=== PATIENT | male | born 1950 | race Caucasian/White ===

== ENCOUNTER → 2018-03-08 | Outpatient (CLI) | payer OTHER ==
--- NOTE | 2018-03-08 11:17 | DIAGNOSTIC IMAGING REPORT ---
KUB HISTORY: Screening study in a patient with history of nephrolithiasis HALTH MAINTENANCE COMPARISON: None. FINDINGS: The bowel gas pattern is non-obstructive. Cholecystectomy clips are noted. There is no organomegaly. There are numerous left-sided renal calculi present measuring up to 1.3 cm within the inferior pole. No ureteral calculi or right-sided nephrolithiasis identified. No pneumoperitoneum or pneumatosis. No fracture. Multilevel degenerative changes about the spine. IMPRESSION: 1. Numerous left-sided nephrolithiasis without ureteral calculi identified. 2. Nonobstructive bowel gas pattern. Electronically signed by: Ricky Lomeli M.D. 03/08/2018 11:16 AM Dictated Date/Time: 03/08/2018 11:14 AM
== END | disposition home or self-care (01) ==
LOC: C.RAD 10:28
PROVIDERS: ATTEND Urology
DX: Z00.00 Encounter for general adult medical examination without abnormal findings (principal); N20.0 Calculus of kidney

== ENCOUNTER → 2018-03-12 | Outpatient (CLI) | payer OTHER, BC ==
[~2018-03-12] MED LIST: ASPCH81X PO; CHOL2000 PO; DITROPAN PO; LISI-788 PO; SIMV20TA2 PO
--- NOTE | 2018-03-12 08:17 | DIAGNOSTIC IMAGING REPORT ---
CHEST 2 VIEWS ROUTINE HISTORY: N20.0 Calculus of [id number] COMPARISON: None. FINDINGS: The lungs are clear. Cardiac silhouette is normal in size. No pleural effusions. No pneumothorax. IMPRESSION: No acute process. Electronically signed by: Suhas Serrano M.D. 03/12/2018 8:15 AM Dictated Date/Time: 03/12/2018 8:14 AM
[2018-03-12 09:50] LABS: BASO % 0.4 %; BASO ABS # 0.03 K/uL (0-0.2); EOS % 2.4 %; EOS ABS # 0.18 K/uL (0-0.5); HEMATOCRIT 42.3 % (42-52); HEMOGLOBIN 14.5 g/dL (14.0-18.0); IG# 0.01 K/uL (0.00-0.02); LYMPH % 28.4 %; LYMPH ABS # 2.12 K/uL (1.2-3.4); MEAN CELL VOLUME 86.7 fL (80-100); MEAN CORPUSCULAR HEMOGLOBIN 29.7 pg (25-34); MEAN CORPUSCULAR HGB CONC 34.3 g/dl (32-36); MEAN PLATELET VOLUME 10.3 fL (7.4-10.4); MONO % 7.2 %; MONO ABS # 0.54 K/uL (0.11-0.59); NEUT % 61.5 %; NEUT ABS # 4.58 K/uL (1.4-6.5); PLATELET COUNT 186 K/uL (130-400); RED CELL DISTRIBUTION WIDTH CV 13.6 % (11.5-14.5); RED CELL DISTRIBUTION WIDTH SD 43.2 fL (36.4-46.3); WHITE BLOOD COUNT 7.46 K/uL (4.8-10.8)
[2018-03-12 10:15] LABS: BLOOD UREA NITROGEN 13 mg/dl (7-18); CARBON DIOXIDE 28 mmol/L (21-32); CREATININE 0.89 mg/dl (0.60-1.40); SODIUM 138 mmol/L (136-145)
== END | disposition home or self-care (01) ==
LOC: C.CPL 07:07
PROVIDERS: ATTEND Urology
DX: Z00.00 Encounter for general adult medical examination without abnormal findings (principal); N20.0 Calculus of kidney

== ENCOUNTER → 2018-03-16 | Day surgery (SDC) | payer OTHER ==
[2018-03-12 08:50] VITALS: Ht 172.7 cm; Wt 109.1 kg
[~2018-03-16] VITALS: Ht 172.7 cm; Wt 109.1 kg
[~2018-03-16] MED LIST changes: +ATROPINE SULFATE 0.1 MG/ML 5ML SYR IV PRN; +CIPROFLOXACIN 400MG / D5W IV SCH; +DEXAMETHASONE SOD INJ 4 MG/ML VIAL ONE; +EpHEDrine SULFATE INJ 50 MG/ML AMP IV PRN; +FENTANYL CITRATE INJ 50 MCG/1 ML 2 ML VIAL IV PRN; +FENTANYL CITRATE INJ 50 MCG/1 ML 2 ML VIAL ONE; +HYDROmorphone INJ 0.5 MG/0.5 ML SYR IV PRN; +LABETALOL HCL IV 5 MG/ML 20ML IV PRN; +LACTATED RINGER'S 1000ML 1,000 ML IV SCH; +LIDOCAINE HCL 2% 2 ML VIAL (20MG/ML) ONE; +MIDAZOLAM HCL 1 MG/ML 2ML VIAL ONE; +ONDANSETRON INJ 2 MG/ML 2 ML VIAL IV PRN; +ONDANSETRON INJ 2 MG/ML 2 ML VIAL ONE; +OXYC-57 PO; +OXYCODONE/ACETAMINOPHEN 5-325 TAB ONE; +OXYCODONE/ACETAMINOPHEN 5-325 TAB PO PRN; +PHENYLEPHRINE 100MCG/ML 5ML SYR IV PRN; +PROMETHAZINE HCL INJ 12.5 MG in SODIUM CHLORIDE 0.9% 50ML 50 ML IV PRN; +PROPOFOL IV EMULSION 10 MG/ML 20 ML VIAL ONE
--- NOTE | 2018-03-16 07:19 | History & Physical Bridge Note ---
H&P Re-Evaluation Bridge Note: I have examined the patient, reviewed the History & Physical and in the interval since the performance of the History & Physical I have noted the following changes of clinical significance: No changes noted
--- NOTE | 2018-03-16 07:42 | Discharge Instructions ---
Discharge Instructions Date of Service March 16, 2018. Admission Reason for Admission: Left Kidney Stones Discharge Discharge Diagnosis / Problem: L renal stones s/p ESWL Discharge Goals Goal(s): Decrease discomfort, Improve disease control, Therapeutic intervention Activity Recommendations Activity Limitations: as noted below Lifting Limitations: no more than 25 pounds, gradually increase as tolerated Exercise/Sports Limitations: rest today, gradually increase as tolerated May Resume Sexual Activity: when tolerated Shower/Bathe: no limitations Driving or Machine Use: resume 1 day after discharge . Instructions / Follow-Up Instructions / Follow-Up Follow-up in office as scheduled with KUB Xray beforehand Current Hospital Diet Patient's current hospital diet: Discharge Diet Recommended Diet: Regular Diet (good fluid intake) Procedures Procedures Performed: Left renal extracorporeal shockwave lithotripsy Pending Studies Studies pending at discharge: yes List of pending studies: KUB Xray before follow-up visit Medical Emergencies . Who to Call and When: Medical Emergencies: If at any time you feel your situation is an emergency, please call 911 immediately. . Non-Emergent Contact Non-Emergency issues call your: Urologist Call Non-Emergent contact if: you have a fever, temperature is above 101, your pain is not controlled, your pain is worsening, your pain is unusual for you, your pain is concerning you, you have any medication questions . . "Provider Documentation" section prepared by Ortiz Cook. . [place] Drug Monitoring Program Search Results: patient reviewed within database, see additional documentation (last Rx in May and Jun 2017)
--- NOTE | 2018-03-16 08:36 | [facility] Post Operative Brief Note ---
Immediate Operative Summary Operative Date March 16, 2018. Pre-Operative Diagnosis Calculus of kidney left renal Post-Operative Diagnosis L renal stone. Procedure(s) Performed L ESWL Surgeon Dr. Ortiz Cook School Photographer Surgeon(s) None Estimated Blood Loss NA Findings Consistent with Post-Op Diagnosis Specimens NA Drains None Anesthesia Type General Complication(s) none Disposition Accompanied Pt To Recover: no Disposition: Recovery Room / PACU
--- NOTE | 2018-03-16 08:49 | OPERATIVE REPORT ---
DATE OF OPERATION: 03/16/2018 PREOPERATIVE DIAGNOSIS: Left renal stones. POSTOPERATIVE DIAGNOSIS: Same. PROCEDURE: Extracorporeal shockwave lithotripsy of upper pole stone. SURGEON: Dr. Ortiz Cook. PUBLIC HEALTH TECHNOLOGIST: None. ANESTHESIA: General anesthesia with laryngeal mask. COMPLICATIONS: None. FINDINGS: Left upper pole stone targeted for the entirety of the treatment, fair fragmentation. DETAILS OF PROCEDURE: The patient was brought to the litho suite. He was correctly identified and the stone was visualized on his most recent x-rays. After the correct time out was performed the patient was positioned over the therapy head. An adequate level of anesthesia was administered. The extracorporeal shockwave lithotripsy treatment was then commenced. Please see the [place] Kidney Stone Management sheet for complete treatment summary. After completion of the procedure the patient was taken to the recovery room in stable condition. I attest to the content of the Intraoperative Record and any orders documented therein. Any exception s are noted below.
--- NOTE | 2018-03-16 09:48 | Anesthesia Progress Nt - [facility] ---
Anesthesia Post Op Note Date & Time March 16, 2018 at 09:48 Vital Signs Pain Intensity: 3.0 Vital Signs Past 12 Hours Date Time Temp Pulse Resp B/P (MAP) Pulse Ox O2 Delivery O2 Flow Rate FiO2 03/16/18 09:24 36.8 51 18 126/76 (93) 96 Room Air 03/16/18 09:16 36.7 03/16/18 09:15 52 18 98 03/16/18 09:15 53 18 03/16/18 09:11 137/81 (91) 03/16/18 09:10 50 5 03/16/18 09:10 50 5 100 03/16/18 09:09 Room Air 03/16/18 09:06 128/67 (90) 03/16/18 09:05 49 14 03/16/18 09:05 49 14 100 03/16/18 09:01 127/72 (89) 03/16/18 09:00 51 13 03/16/18 09:00 51 13 100 03/16/18 08:56 119/75 (96) 03/16/18 08:55 53 03/16/18 08:55 53 100 03/16/18 08:51 117/72 (90) 03/16/18 08:50 68 03/16/18 08:50 68 97 03/16/18 08:49 108/80 (89) 03/16/18 08:46 36.4 65 16 108/80 97 Diffusion Mask 6 03/16/18 06:33 37 63 16 126/77 (93) 97 Room Air Notes Mental Status: alert / awake / arousable, participated in evaluation Pt Amnestic to Procedure: Yes Nausea / Vomiting: adequately controlled Pain: adequately controlled Airway Patency, RR, SpO2: stable & adequate BP & HR: stable & adequate Hydration State: stable & adequate Anesthetic Complications: no major complications apparent
[2018-03-16 09:54] VITALS: BP 139/86; PULSE 61; O2SAT 96
== END | disposition home or self-care (01) ==
LOC: X.SURG 06:11
PROVIDERS: ATTEND Urology
DX: N20.0 Calculus of kidney (principal); N40.1 Benign prostatic hyperplasia with lower urinary tract symptoms; N13.8 Other obstructive and reflux uropathy; G47.33 Obstructive sleep apnea (adult) (pediatric); M19.90 Unspecified osteoarthritis, unspecified site; E78.00 Pure hypercholesterolemia, unspecified; I10 Essential (primary) hypertension; Z90.89 Acquired absence of other organs; Z90.49 Acquired absence of other specified parts of digestive tract; Z82.49 Family history of ischemic heart disease and other diseases of the circulatory system; Z84.1 Family history of disorders of kidney and ureter; Z83.3 Family history of diabetes mellitus; Z80.52 Family history of malignant neoplasm of bladder; Z79.82 Long term (current) use of aspirin; Z79.899 Other long term (current) drug therapy; Z88.1 Allergy status to other antibiotic agents

== ENCOUNTER → 2018-05-22 | Outpatient (CLI) | payer OTHER, BC ==
[~2018-05-22] MED LIST changes: -ATROPINE SULFATE 0.1 MG/ML 5ML SYR IV PRN; +CIPR-255 PO; -CIPROFLOXACIN 400MG / D5W IV SCH; -DEXAMETHASONE SOD INJ 4 MG/ML VIAL ONE; -DITROPAN PO; +DTR5 PO; -EpHEDrine SULFATE INJ 50 MG/ML AMP IV PRN; -FENTANYL CITRATE INJ 50 MCG/1 ML 2 ML VIAL IV PRN; -FENTANYL CITRATE INJ 50 MCG/1 ML 2 ML VIAL ONE; -HYDROmorphone INJ 0.5 MG/0.5 ML SYR IV PRN; -LABETALOL HCL IV 5 MG/ML 20ML IV PRN; -LACTATED RINGER'S 1000ML 1,000 ML IV SCH; -LIDOCAINE HCL 2% 2 ML VIAL (20MG/ML) ONE; -LISI-788 PO; +LSN/10125 PO; -MIDAZOLAM HCL 1 MG/ML 2ML VIAL ONE; +MRLP17X PO; -ONDANSETRON INJ 2 MG/ML 2 ML VIAL IV PRN; -ONDANSETRON INJ 2 MG/ML 2 ML VIAL ONE; -OXYCODONE/ACETAMINOPHEN 5-325 TAB ONE; -OXYCODONE/ACETAMINOPHEN 5-325 TAB PO PRN; +PHEN95TA14 PO; -PHENYLEPHRINE 100MCG/ML 5ML SYR IV PRN; -PROMETHAZINE HCL INJ 12.5 MG in SODIUM CHLORIDE 0.9% 50ML 50 ML IV PRN; -PROPOFOL IV EMULSION 10 MG/ML 20 ML VIAL ONE
== END | disposition home or self-care (01) ==
LOC: C.LAB1850 11:32
PROVIDERS: ATTEND Internal Medicine Nephrology
DX: N20.0 Calculus of kidney (principal)

== ENCOUNTER → 2018-05-25 | Outpatient (CLI) | payer OTHER, BC | END | disposition home or self-care (01) | LOC: C.LABSPEC 16:10 | PROVIDERS: ATTEND Urology | DX: N20.0 Calculus of kidney (principal) ==

== ENCOUNTER → 2018-05-25 | Outpatient (CLI) | payer OTHER, BC ==
--- NOTE | 2018-05-25 12:17 | DIAGNOSTIC IMAGING REPORT ---
KUB HISTORY: Left renal calculus with left ureteral stent N20.0 Calculus of kidney COMPARISON: KUB 04/18/2018 FINDINGS: The bowel gas pattern is non-obstructive. Surgical clips of the right upper quadrant abdomen suggest prior cholecystectomy. There is no organomegaly. Multiple left renal calculi redemonstrated measuring up to 6 mm. No definite calculi along the course of the left ureter. No definite right nephrolithiasis. Left ureteral stent in place with focal area of coiling noted about the distal stent at the level of the mid sacrum. No pneumoperitoneum or pneumatosis. No fracture. Degenerative changes of the pelvis, hips and spine. IMPRESSION: 1. Left ureteral stent in place with focal area of coiling noted about the distal left stent at the level of the mid sacrum. 2. Left nephrolithiasis without ureteral calculi identified. Electronically signed by: Ricky Lomeli M.D. 05/25/2018 12:15 PM Dictated Date/Time: 05/25/2018 12:13 PM
== END | disposition home or self-care (01) ==
LOC: C.RAD 11:22
PROVIDERS: ATTEND Urology
DX: N20.0 Calculus of kidney (principal)

== ENCOUNTER → 2018-06-05 | Day surgery (SDC) | payer OTHER, BC ==
[2018-06-04 14:19] VITALS: BMI 36.0
[~2018-06-05] VITALS: Ht 172.7 cm; Wt 109.1 kg
[~2018-06-05] MED LIST changes: +ACET-1256 PO; +ACETAMINOPHEN 325 MG TAB PO PRN; +ATROPINE SULFATE 0.1 MG/ML 5ML SYR IV PRN; +CHECK SCOPOLAMINE PATCH PLACEMENT SCH; +CIPROFLOXACIN / D5W 400 MG IV SCH; +DEXAMETHASONE SOD INJ 4 MG/ML VIAL ONE; +EpHEDrine SULFATE INJ 50 MG/ML AMP IV PRN; +FENTANYL CITRATE INJ 50 MCG/1 ML 2 ML VIAL IV PRN; +FENTANYL CITRATE INJ 50 MCG/1 ML 2 ML VIAL ONE; +HYDROCODONE/ACETAMIN 5/325MG TAB ONE; +HYDROCODONE/ACETAMIN 5/325MG TAB PO PRN; +LABETALOL HCL IV 5 MG/ML 20ML IV PRN; +LABETALOL HCL IV 5 MG/ML 20ML ONE; +LACTATED RINGER'S 1000ML 1,000 ML IV SCH; +LIDOCAINE HCL 2% 2 ML VIAL (20MG/ML) ONE; +NURSING VERBAL MED ORDER ONE; +ONDANSETRON INJ 2 MG/ML 2 ML VIAL IV PRN; +ONDANSETRON INJ 2 MG/ML 2 ML VIAL ONE; +PROMETHAZINE HCL INJ 6.25 MG in SODIUM CHLORIDE 0.9% 50ML 50 ML IV PRN; +PROPOFOL IV EMULSION 10 MG/ML 20 ML VIAL ONE; +SCOPOLAMINE 1.5 MG TDSY TD ONE; +SCOPOLAMINE 1.5 MG TDSY TD SCH; +SODIUM CHLORIDE 0.9% 1000ML 1,000 ML IV SCH
[2018-06-05 13:20] VITALS: BP 112/76; PULSE 57; TEMP 36.7; O2SAT 98; Ht 172.7 cm; Wt 109.1 kg
--- NOTE | 2018-06-05 19:02 | [facility] Operative Report ---
Operative Report Operative Date Jun 05, 2018. Pre-Operative Diagnosis Calculus of kidney Benign prostatic hyperplasia with urinary obstruction Post-Operative Diagnosis Same Procedure(s) Performed Left Cystoscopy, Ureteronephroscopy with Ureteral Dilation, Laser Destruction of the Stone; Left Stent Exchange([id number]), basket manipulation of stone Surgeon Dr. Hele[employer] Tool And Die Manager Surgeon(s) None Estimated Blood Loss 0cc Specimens None Drains None Anesthesia Type General Complication(s) none Disposition yes Recovery Room / PACU Description of Procedure The patient was identified in the preoperative holding area, appropriate informed consents reviewed and completed and the patient was transported to the operating suite. Upon arrival he received appropriate preoperative antibiotics in the form of ciprofloxacin. Adequate general anesthesia was achieved, he was placed in dorsal lithotomy position where he was sterilely prepped and draped in standard fashion. We began the case by passing a 22 [place] cystoscope with 30 lens, inspection revealed no evidence of stricture disease, he is status post TURP in the past, his bladder is healthy appearing. He has a stent protruding from the left ureteral orifice with a small piece of string attached to the distal aspect of the stent. Of note, on fluoroscopic evaluation there is a loop in the stent in the mid ureter, somewhat concerning for a knot. With care, I grasped the distal end of the stent under fluoroscopic guidance gently withdrew the stent. Fortunately this was not a knot was a simple loop. The stent straighten appropriately and I was able to intubate it with a sensor wire which was advanced to the kidney without difficulty. After removing the stent, I placed a 10 [place] double-lumen catheter into the ureter and advanced a second wire into the kidney. I then advanced a flexible ureteroscope over one wire will reserving other full inspection revealed several fragments floating around in the renal pelvis. Of note, he has a complex kidney with numerous compound calyces. In the extreme lower pole, there is an opacity consistent with a large stone seen on his KUB. After treating all of the fragments pieces deemed safe for spontaneous passage, I turned my attention to the lower pole. The stone that was there was extremely challenging to reach secondary to its location. I passed a basket was able to manipulate the stone out of the lower pole and into the upper pole. I subsequently fragmented it entirely with a 270 m laser fiber. I carefully worked my way through the calyces again and all visible calyces were free of large calculi. Performed a careful exit ureteroscopy before placing a 6 [place] by 26 cm double-J stent seeing a good curl in the kidney as well as the bladder. The bladder is decompressed and the case concluded. The patient was taken to the PACU in stable condition. I attest to the content of the Intraoperative Record and any orders documented therein. Any exceptions are noted below.
--- NOTE | 2018-06-05 19:13 | Discharge Instructions ---
Discharge Instructions Date of Service Jun 05, 2018. Admission Reason for Admission: kidney stones Discharge Discharge Diagnosis / Problem: stones Discharge Goals Goal(s): Decrease discomfort, Improve function, Increase independence, Improve disease control, Prevent Disease Progression Activity Recommendations Activity Limitations: resume your previous activity Lifting Limitations: none Exercise/Sports Limitations: none May Resume Sexual Activity: when tolerated Shower/Bathe: no limitations Driving or Machine Use: resume 1 day after discharge . Instructions / Follow-Up Instructions / Follow-Up Please keep your previously scheduled appointment for stent removal. Current Hospital Diet Patient's current hospital diet: Discharge Diet Recommended Diet: Regular Diet Procedures Procedures Performed: Left Cystoscopy, Ureteronephroscopy with Ureteral Dilation, Laser Destruction of the Stone; Left Stent Exchange([id number]), basket manipulation of stone Pending Studies Studies pending at discharge: no Medical Emergencies . Who to Call and When: Medical Emergencies: If at any time you feel your situation is an emergency, please call 911 immediately. . Non-Emergent Contact Non-Emergency issues call your: Urologist Call Non-Emergent contact if: you have a fever, temperature is above 101.5, your pain is not controlled, your pain is worsening . . "Provider Documentation" section prepared by Bill Andre. .
--- NOTE | 2018-06-05 19:28 | DIAGNOSTIC IMAGING REPORT ---
RETROGRADE INCLUDES KUB CLINICAL HISTORY: LTCYSTO LASER STENT stent exchange TECHNIQUE: Image intensifier COMPARISON STUDY: 04/18/2018 FINDINGS: Image intensifier was utilized for a left-sided stent exchange. Fluoroscopy time 22 seconds. 2 images acquired. IMPRESSION: Left ureteral stent replacement. The above report was generated using voice recognition software. It may contain grammatical, syntax or spelling errors. Electronically signed by: Geo Mathis M.D. 06/05/2018 7:26 PM Dictated Date/Time: 06/05/2018 7:26 PM
--- NOTE | 2018-06-05 19:41 | Anesthesiology Progress Note ---
Anesthesia Post Op Note Date & Time Jun 05, 2018 at 19:41 Vital Signs Pain Intensity: 0 Vital Signs Past 12 Hours Date Time Temp Pulse Resp B/P (MAP) Pulse Ox O2 Delivery O2 Flow Rate FiO2 06/05/18 19:35 61 16 144/80 96 Room Air 06/05/18 19:25 59 16 125/81 100 Nasal Cannula 3 06/05/18 19:15 65 16 145/75 98 Nasal Cannula 3 06/05/18 19:05 36.4 84 16 130/92 98 Nasal Cannula 3 06/05/18 13:20 36.7 57 18 112/76 (88) 98 Room Air Notes Mental Status: alert / awake / arousable, participated in evaluation Pt Amnestic to Procedure: Yes Nausea / Vomiting: adequately controlled Pain: adequately controlled Airway Patency, RR, SpO2: stable & adequate BP & HR: stable & adequate Hydration State: stable & adequate Anesthetic Complications: no major complications apparent
[2018-06-05 19:45] VITALS: BP 143/81; PULSE 65; TEMP 36.7; O2SAT 95
[2018-06-05 20:15] VITALS: BP 151/97; PULSE 68; TEMP 36.7; O2SAT 96
[2018-06-05 20:45] VITALS: BP 147/100; PULSE 70; TEMP 36.6; O2SAT 97
[2018-06-05 21:15] VITALS: BP 142/89; PULSE 65; TEMP 36.6; O2SAT 95
== END | disposition home or self-care (01) ==
LOC: C.ACU 12:53
PROVIDERS: ATTEND Urology
DX: N20.0 Calculus of kidney (principal); N40.1 Benign prostatic hyperplasia with lower urinary tract symptoms; N13.8 Other obstructive and reflux uropathy; E66.9 Obesity, unspecified; G47.33 Obstructive sleep apnea (adult) (pediatric); I10 Essential (primary) hypertension; E78.5 Hyperlipidemia, unspecified; M19.90 Unspecified osteoarthritis, unspecified site; E78.00 Pure hypercholesterolemia, unspecified; Z88.1 Allergy status to other antibiotic agents; Z79.82 Long term (current) use of aspirin; Z79.899 Other long term (current) drug therapy; Z68.36 Body mass index [BMI] 36.0-36.9, adult